=== PATIENT | female | born 1990 ===

== ENCOUNTER 2016-07-27 22:20 | Emergency (ER) | payer BC ==
[2016-07-27 22:28] VITALS: BP 132/74; PULSE 111; TEMP 98.3; BMI 23.3
[2016-07-27] MEDS ORDERED: LIDOCAINE VISCOUS 2% ORAL/TOP 20 ML UNIT-DOSE CUP MM ONE (22:29)
[2016-07-27] MEDS ORDERED: KETOROLAC TROMETHAMINE 60 MG/2 ML VIAL IM ONE (22:29)
--- NOTE | 2016-07-27 22:57 | PDOC ---
History of Present Illness - General Chief Complaint: Pain, Acute Stated Complaint: SWOLLEN GLANDS, NECK PAIN Time Seen by Provider: 07/27/16 22:29 History Source: Patient - History of Present Illness Initial Comments: 07/28/16 01:47 presents with sore throat, swollen glands, headache, back pain x 2 days seen at urgent care. strep and mono negative has taken aleve without relief no fever but reports wakingup to soaking wet bed no sick contacts pmh: denies fhx: non-contributory ros: reviewed and otherwise negative o/e Physical exam: GENERAL: [The patient is awake, alert, and fully oriented, and in no apparent distress.] HEAD: [Normal with no signs of trauma.] EYES: [Pupils equal, round and reactive to light, extraocular movements intact, sclera anicteric, conjunctiva are normal.] ENT: [TMs normal, nares patent, oropharynx + exudates. Moist mucous membranes.] NECK: [Normal range of motion, supple without lymphadenopathy, JVD, or masses.] LUNGS: [Breath sounds equal, clear to auscultation bilaterally. No wheezes, and no crackles.] HEART: [Regular rate and rhythm, normal S1 and S2 without murmur, rub or gallop.] ABDOMEN: [Soft, nontender, normoactive bowel sounds. No guarding, no rebound. No masses appreciated.] EXTREMITIES: [Normal range of motion, no edema. No clubbing or cyanosis. No cords, erythema, or tenderness.] NEUROLOGICAL: [Cranial nerves II through XII grossly intact. Normal speech, normal gait.] PSYCH: [Normal mood, normal affect.] SKIN: [Warm, Dry, normal turgor, no rashes or lesions noted.] a/p pharyngitis viral syndrome symptomatic mgmt Past History - Past Medical History Allergies/Adverse Reactions: Allergies Allergy/AdvReac Type Severity Reaction Status Date / Time No Known Allergies Allergy Verified 07/27/16 22:22 Home Medications: Ambulatory Orders Norethindrone AC-Eth Estradiol [Microgestin 21 1-20 Tablet] 1 each PO DAILY Other medical history: DENIES - Psycho/Social/Smoking Cessation Hx Anxiety: No Suicidal Ideation: No Smoking History: Never smoked Have you smoked in the past 12 months: No Information on smoking cessation initiated: No Hx Alcohol Use: Yes (SOCIAL) Drug/Substance Use Hx: No Substance Use Type: None *Physical Exam - Vital Signs Last Vital Signs Temp Pulse Resp BP Pulse Ox 98.3 F 111 H 16 132/74 98 07/27/16 22:24 07/27/16 22:24 07/27/16 22:24 07/27/16 22:24 07/27/16 22:24 *DC/Admit/Observation/Transfer Diagnosis at time of Disposition: Pharyngitis Qualifiers: Pharyngitis/tonsillitis etiology: unspecified etiology Qualified Code(s): J02.9 - Acute pharyngitis, unspecified - Discharge Dispostion Disposition: HOME Condition at time of disposition: Good - Patient Instructions Printed Discharge Instructions: Viral Pharyngitis
== END 2016-07-27 23:12 | disposition home or self-care (01) ==
LOC: FER 22:20
PROC: 3E0233Z Introduction of Anti-inflammatory into Muscle, Percutaneous Approach (ICD-10-PCS; principal; 2016-07-27)
DX: J02.9 Acute pharyngitis, unspecified (principal)
CPT/HCPCS: 87070; 87077; 87430; 99281-25